=== PATIENT | male | born 1960 | race Two or more races ===

== ENCOUNTER 2017-04-17 14:21 | Emergency (ER) | payer MEDICAID ==
[~2017-04-17] VITALS: Ht 175.3 cm; Wt 81.6 kg
[~2017-04-17 14:21] MED LIST: CYCL5TAB PO; GABA300C8 PO; NOR10T PO; TAMS0.4C36 PO; WARF6TAB21 PO
[2017-04-17 14:28] VITALS: BP 140/89
== END 2017-04-17 18:46 | disposition left against medical advice (07) ==
LOC: ER 14:21
DX: M79.605 Pain in left leg (principal); M79.604 Pain in right leg; Z76.0 Encounter for issue of repeat prescription; Z53.21 Procedure and treatment not carried out due to patient leaving prior to being seen by health care provider

== ENCOUNTER 2017-04-23 13:49 | Emergency (ER) | payer MEDICAID ==
[~2017-04-23] VITALS: Ht 175.3 cm; Wt 81.6 kg
[2017-04-23 14:00] VITALS: BP 138/94
== END 2017-04-23 16:05 | disposition home or self-care (01) ==
LOC: ER 13:49
DX: G89.29 Other chronic pain (principal); M54.42 Lumbago with sciatica, left side; F12.10 Cannabis abuse, uncomplicated; F17.210 Nicotine dependence, cigarettes, uncomplicated; Z79.01 Long term (current) use of anticoagulants; Z76.0 Encounter for issue of repeat prescription

== ENCOUNTER 2017-05-03 09:03 | Emergency (ER) | payer MEDICAID ==
[~2017-05-03] VITALS: Ht 177.8 cm; Wt 81.6 kg
[~2017-05-03 09:03] MED LIST changes: +GABA-497 PO; -GABA300C8 PO
[2017-05-03 09:19] VITALS: BP 139/89
== END 2017-05-03 10:14 | disposition home or self-care (01) ==
LOC: ER 09:03
DX: M54.9 Dorsalgia, unspecified (principal); Z76.0 Encounter for issue of repeat prescription; F17.210 Nicotine dependence, cigarettes, uncomplicated; F12.10 Cannabis abuse, uncomplicated; Z79.899 Other long term (current) drug therapy

== ENCOUNTER 2017-08-26 15:19 | Emergency (ER) | payer MEDICAID ==
[~2017-08-26] VITALS: Ht 177.8 cm; Wt 81.6 kg
[~2017-08-26 15:19] MED LIST changes: +FAM20T PO; -NOR10T PO; -TAMS0.4C36 PO; -WARF6TAB21 PO
[2017-08-26 16:12] VITALS: BP 133/60
== END 2017-08-26 16:54 | disposition home or self-care (01) ==
LOC: ER 15:19
DX: G62.9 Polyneuropathy, unspecified (principal); Z79.899 Other long term (current) drug therapy; Z76.0 Encounter for issue of repeat prescription; F17.210 Nicotine dependence, cigarettes, uncomplicated

== ENCOUNTER 2017-11-24 03:51 | Inpatient (IN) | payer MEDICAID ==
[~2017-11-24] VITALS: Ht 175.3 cm; Wt 85.6 kg
[~2017-11-24 03:51] MED LIST changes: -CYCL5TAB PO; +CYCL7.5T15 PO; -FAM20T PO; -GABA-497 PO
[2017-11-24 06:32] LABS: Eosinophils # (auto) 0.3 uL; Hemoglobin 12.3 g/dL (13.5-17.5); Mean Corpuscular Hemoglobin 21.8 pg (28.0-32.0)
[2017-11-24 06:36] LABS: Basophils # (auto) 0.1 uL; Hematocrit 39.7 % (41.0-53.0); Lymphocytes # (auto) 0.9 uL; Lymphocytes % (auto) 9.4 % (10.0-50.0); Mean Corpuscular Hgb Conc. 30.9 g/dL (32.0-36.0); Mean Corpuscular Volume 70.7 fL (80.0-100.0); Monocytes % (auto) 10.3 % (0.0-12.0); Neutrophils # (auto) 7.3 uL; Neutrophils % (auto) 76.3 % (37.0-80.0); Platelet Count (auto) 510 10^3/uL (140-450); Red Blood Cells 5.61 10^6/uL (4.5-5.90); White Blood Cell 9.6 10^3/uL (4.4-10.8)
[2017-11-24 06:54] LABS: Red Cell Distribution Width 28.6 % (11.8-14.3)
[2017-11-24 06:59] LABS: Alanine Aminotransferase 20 U/L (16-61); Albumin 3.8 g/dL (3.4-5.0); Alkaline Phosphatase 127 U/L (45-117); Anion Gap 10 (5-15); Aspartate Aminotransferase 15 U/L (15-37); Bilirubin, Total 0.3 mg/dL (0.2-1.0); Blood Urea Nitrogen 18 mg/dL (7-18); Calcium 8.4 mg/dL (8.5-10.1); Carbon Dioxide 21 mmol/L (21-32); Chloride 108 mmol/L (98-107); GFR African American 144 mL/min; GFR Non-African American 119 mL/min; Glucose 98 mg/dL (74-106); Magnesium 2.6 mg/dL (1.6-2.6); Potassium 3.9 mmol/L (3.5-5.1); Sodium 139 mmol/L (136-145)
[2017-11-24] MEDS ORDERED: ASPirin-EC 81 mg tab PO ONE (13:15)
[2017-11-24] MEDS ORDERED: ACETAMINOPHEN 500 MG TAB PO PRN (13:30)
[2017-11-24] MEDS ORDERED: TEMAZEPAM 15 MG CAP PO PRN (13:30)
[2017-11-24] MEDS ORDERED: PROMETHAZINE HCL 25 MG/ML 1ML IV PRN (13:30)
[2017-11-24] MEDS ORDERED: NITROGLYCERIN 0.4 MG SL TAB SL PRN (13:30)
[2017-11-24] MEDS ORDERED: LORazepam 0.5 MG TAB PO PRN (13:30)
[2017-11-24] MEDS ORDERED: MORPHINE SULFATE 10 MG/ML INJ 1ML SDV IV PRN ×2 (13:45)
[2017-11-24] MEDS ORDERED: NITROGLYCERIN 0.2MG/HR TOPICAL PATCH TD ONE (13:45)
[2017-11-24] MEDS ORDERED: PANTOPRAZOLE 40 MG TAB PO ONE (13:45)
[2017-11-24] MEDS ORDERED: METOPROLOL TARTRATE 25 MG TAB PO ONE (13:45)
[2017-11-24] MEDS: SODIUM CHLORIDE 0.9% 1,000 ML IV SCH (14:03)
[2017-11-24 14:40] LABS: INR 0.97 (0.9-1.15); Partial Thromboplastin Time 28.2 sec (22.64-33.71); Prothrombin Time 10.6 sec (9.37-12.3)
[2017-11-24 14:51] LABS: CRP High Sensitivity 0.49 mg/dL (< 0.3)
[2017-11-24] MEDS: METOPROLOL TARTRATE 25 MG TAB PO SCH (22:00)
[2017-11-24] MEDS: ATORVASTATIN 20 MG TAB PO SCH (22:00)
[2017-11-24 23:30] VITALS: BP 115/72
[2017-11-25] MEDS: SODIUM CHLORIDE 0.9% 1,000 ML IV SCH ×2 (02:47→16:04)
[2017-11-25 05:00] VITALS: BP 124/67
[2017-11-25] MEDS ORDERED: OXYB15TA12 PO (05:33)
[2017-11-25] MEDS ORDERED: GABA-339 PO (05:33)
[2017-11-25] MEDS ORDERED: FER325T PO (05:33)
[2017-11-25] MEDS ORDERED: PANT40TA2 PO (05:33)
[2017-11-25 08:00] VITALS: BP 115/66
[2017-11-25 09:00] VITALS: BP 115/66
[2017-11-25] MEDS: METOPROLOL TARTRATE 25 MG TAB PO SCH ×2 (09:38→21:40)
[2017-11-25] MEDS: PANTOPRAZOLE 40 MG TAB PO SCH (09:38)
[2017-11-25] MEDS: NITROGLYCERIN 0.2MG/HR TOPICAL PATCH TD SCH (10:00)
[2017-11-25 10:38] LABS: Albumin 3.2 g/dL (3.4-5.0); BUN/Creatinine Ratio 18.2; Bilirubin, Total 0.3 mg/dL (0.2-1.0); Calcium 8.1 mg/dL (8.5-10.1); Potassium 3.8 mmol/L (3.5-5.1); Total Protein 6.7 g/dL (6.4-8.2)
[2017-11-25 11:14] LABS: Basophils # (auto) 0.1 uL; Basophils % (auto) 0.9 % (0.0-2.0); Eosinophils # (auto) 0.3 uL; Eosinophils % (auto) 4.6 % (0.0-7.0); Hematocrit 34.1 % (41.0-53.0); Hemoglobin 10.4 g/dL (13.5-17.5); Lymphocytes # (auto) 0.6 uL; Lymphocytes % (auto) 9.7 % (10.0-50.0); Mean Corpuscular Hemoglobin 21.7 pg (28.0-32.0); Mean Corpuscular Hgb Conc. 30.5 g/dL (32.0-36.0); Mean Corpuscular Volume 71.1 fL (80.0-100.0); Monocytes # (auto) 0.4 uL; Monocytes % (auto) 6.2 % (0.0-12.0); Neutrophils # (auto) 4.7 uL; Neutrophils % (auto) 78.6 % (37.0-80.0); Platelet Count (auto) 439 10^3/uL (140-450); Red Blood Cells 4.79 10^6/uL (4.5-5.90); Red Cell Distribution Width 28.1 % (11.8-14.3); White Blood Cell 5.9 10^3/uL (4.4-10.8)
[2017-11-25 13:00] VITALS: BP 126/67
[2017-11-25 17:00] VITALS: BP 119/73
[2017-11-25] MEDS: ATORVASTATIN 20 MG TAB PO SCH (21:39)
[2017-11-25 22:00] VITALS: BP 131/75
[2017-11-26] MEDS: SODIUM CHLORIDE 0.9% 1,000 ML IV SCH ×2 (04:50→17:43)
[2017-11-26 05:00] VITALS: BP 113/80
[2017-11-26 08:00] VITALS: BP 131/84
[2017-11-26 08:54] VITALS: BP 131/84
[2017-11-26] MEDS: NITROGLYCERIN 0.2MG/HR TOPICAL PATCH TD SCH (09:25)
[2017-11-26] MEDS: METOPROLOL TARTRATE 25 MG TAB PO SCH ×2 (09:25→22:00)
[2017-11-26] MEDS: PANTOPRAZOLE 40 MG TAB PO SCH (09:25)
[2017-11-26] MEDS: HYDROcodone-ACET 5/325MG TAB PO PRN ×2 (09:29→16:11)
[2017-11-26 12:00] VITALS: BP 125/66
[2017-11-26] MEDS ORDERED: BISACODYL 5 MG EC TAB PO ONE (16:15)
[2017-11-26 17:00] VITALS: BP 132/85
[2017-11-26 22:00] VITALS: BP 118/79
[2017-11-26] MEDS: ATORVASTATIN 20 MG TAB PO SCH (22:00)
[2017-11-27 05:49] VITALS: BP 121/87
[2017-11-27 08:00] VITALS: BP 115/71
[2017-11-27] MEDS: SODIUM CHLORIDE 0.9% 1,000 ML IV SCH ×2 (08:07→20:46)
[2017-11-27] MEDS: METOPROLOL TARTRATE 25 MG TAB PO SCH ×2 (09:25→20:45)
[2017-11-27] MEDS: PANTOPRAZOLE 40 MG TAB PO SCH (09:25)
[2017-11-27] MEDS: NITROGLYCERIN 0.2MG/HR TOPICAL PATCH TD SCH (09:25)
[2017-11-27 12:00] VITALS: BP 109/53
[2017-11-27 17:00] VITALS: BP 127/82
[2017-11-27] MEDS: HYDROcodone-ACET 5/325MG TAB PO PRN (17:10)
[2017-11-27] MEDS: ATORVASTATIN 20 MG TAB PO SCH (20:45)
[2017-11-27 22:00] VITALS: BP 140/80
[2017-11-28] MEDS: HYDROcodone-ACET 5/325MG TAB PO PRN (05:32)
[2017-11-28 06:11] VITALS: BP 121/81
[2017-11-28 09:00] VITALS: BP 116/78
[2017-11-28] MEDS: NITROGLYCERIN 0.2MG/HR TOPICAL PATCH TD SCH (10:00)
[2017-11-28] MEDS: METOPROLOL TARTRATE 25 MG TAB PO SCH (10:00)
[2017-11-28] MEDS: PANTOPRAZOLE 40 MG TAB PO SCH (10:01)
[2017-11-28] MEDS: SODIUM CHLORIDE 0.9% 1,000 ML IV SCH (10:47)
[2017-11-28 13:00] VITALS: BP 110/76
[2017-11-28 17:00] VITALS: BP 98/60
[2017-11-28 17:21] VITALS: BP 130/83
[2017-11-29 07:07] LABS: Alcohol, Urine < 3.0 mg/dL (0-5); Amphetamine Screen, Urine NEGATIVE (NEGATIVE); Barbiturate Scree,Urine NEGATIVE (NEGATIVE); Benzodiazephine Screen, Urine NEGATIVE (NEGATIVE); Cannabinoid Screen, Urine NEGATIVE (NEGATIVE); Cocaine Screen, Urine NEGATIVE (NEGATIVE); Opiate Scree,Urine NEGATIVE (NEGATIVE); Phencyclidine Screen, Urine NEGATIVE (NEGATIVE)
== END 2017-11-28 18:15 | disposition home or self-care (01) | DRG 203 ==
LOC: EDBD 03:51 → ER 03:58 → TELE 03:59 → TELE-EAST 23:02
PROVIDERS: ADMIT Internal Medicine; ATTEND Internal Medicine Pulmonary Disease
DX: M94.0 Chondrocostal junction syndrome [Tietze] (principal); G82.20 Paraplegia, unspecified; E44.1 Mild protein-calorie malnutrition; D47.3 Essential (hemorrhagic) thrombocythemia; F17.210 Nicotine dependence, cigarettes, uncomplicated; D50.9 Iron deficiency anemia, unspecified; M54.9 Dorsalgia, unspecified; G89.29 Other chronic pain; Z87.11 Personal history of peptic ulcer disease; Z82.49 Family history of ischemic heart disease and other diseases of the circulatory system; Z59.0 Homelessness
CPT/HCPCS: 36415; 71010; 80053; 80061; 80307; 82550; 83735; 84484; 85025; 85379; 85610; 85652; 85730; 86141; 87081; 93005; 97163

== ENCOUNTER 2018-08-23 12:30 | Emergency (ER) | payer MEDICAID ==
[~2018-08-23] VITALS: Ht 157.5 cm; Wt 79.4 kg
[~2018-08-23 12:30] MED LIST changes: +CLIN1CAP4 PO; -CYCL7.5T15 PO; +DICL1GEL26; +FER325T PO; +GABA-339 PO; +OXYB15TA12 PO; +PANT40TA2 PO; +SACC250C PO
[2018-08-23 12:37] VITALS: BP 141/94
[2018-08-23] MEDS ORDERED: hydrOXYzine HCL 25 MG/ML VL IM ONE (14:15)
[2018-08-23] MEDS ORDERED: NALBUPHINE HCL 10 MG/1ml INJECTION IM ONE (14:15)
== END 2018-08-23 14:49 | disposition home or self-care (01) ==
LOC: EDBD 12:30 → ER 12:30
DX: G89.29 Other chronic pain (principal); M54.5 Low back pain; F17.210 Nicotine dependence, cigarettes, uncomplicated; F12.10 Cannabis abuse, uncomplicated; Z59.0 Homelessness
CPT/HCPCS: 96372; 99284; J2300; J3410

== ENCOUNTER 2019-07-02 21:55 | Emergency (ER) | payer MEDICAID ==
[~2019-07-02] VITALS: Ht 177.8 cm; Wt 65.8 kg
[~2019-07-02 21:55] MED LIST changes: -CLIN1CAP4 PO; +CLIN300C8 PO
[2019-07-02 22:18] VITALS: BP 126/87
[2019-07-02 22:46] LABS: Basophils # (auto) 0.1 uL; Eosinophils # (auto) 0.1 uL; Eosinophils % (auto) 1.7 % (0.0-7.0); Lymphocytes # (auto) 1.3 uL; Monocytes # (auto) 0.7 uL; Neutrophils # (auto) 6.4 uL; White Blood Cell 8.6 10^3/uL (4.4-10.8)
[2019-07-02 22:49] LABS: Basophils % (auto) 0.8 % (0.0-2.0); Hematocrit 52.5 % (41.0-53.0); Hemoglobin 17.9 g/dL (13.5-17.5); Lymphocytes % (auto) 15.1 % (10.0-50.0); Mean Corpuscular Hemoglobin 29.7 pg (28.0-32.0); Mean Corpuscular Hgb Conc. 34.1 g/dL (32.0-36.0); Monocytes % (auto) 7.7 % (0.0-12.0); Neutrophils % (auto) 74.7 % (37.0-80.0); Nucleated Red Blood Cells % 0.3 %; Platelet Count (auto) 371 10^3/uL (140-450); Red Blood Cells 6.03 10^6/uL (4.5-5.90); Red Cell Distribution Width 13.9 % (11.8-14.3)
[2019-07-02 23:03] LABS: Albumin 3.9 g/dL (3.4-5.0); Anion Gap 9 (5-15); Blood Urea Nitrogen 17 mg/dL (7-18); Calcium 8.9 mg/dL (8.5-10.1); Carbon Dioxide 23 mmol/L (21-32); Chloride 112 mmol/L (98-107); Glucose 96 mg/dL (74-106); Potassium 4.1 mmol/L (3.5-5.1); Sodium 144 mmol/L (136-145)
[2019-07-02 23:10] LABS: Alanine Aminotransferase 22 U/L (16-61); Alkaline Phosphatase 140 U/L (45-117); Aspartate Aminotransferase 12 U/L (15-37); BUN/Creatinine Ratio 16.8; Bilirubin, Total 0.4 mg/dL (0.2-1.0); GFR African American 97 mL/min; GFR Non-African American 80 mL/min
== END 2019-07-03 02:08 | disposition left against medical advice (07) ==
LOC: ER 21:55
DX: R30.9 Painful micturition, unspecified (principal); Z53.21 Procedure and treatment not carried out due to patient leaving prior to being seen by health care provider
CPT/HCPCS: 36415; 80053; 84484; 85025

== ENCOUNTER 2019-09-07 14:47 | Emergency (ER) | payer MEDICAID ==
[~2019-09-07] VITALS: Ht 175.3 cm; Wt 77.1 kg
[2019-09-07 15:20] VITALS: BP 137/89
[2019-09-07 17:44] LABS: Urine Bacteria NONE SEEN /hpf (None Seen); Urine Blood Negative /uL (Negative); Urine Mucus FEW (None Seen); Urine Specific Gravity 1.024 (1.001-1.035); Urine WBC <1 /hpf (0 - 3)
== END 2019-09-07 18:18 | disposition home or self-care (01) ==
LOC: ER 14:51
DX: R30.0 Dysuria (principal); Z79.899 Other long term (current) drug therapy
CPT/HCPCS: 51701; 81001

== ENCOUNTER 2020-07-03 08:32 | Emergency (ER) | payer MEDICAID ==
[~2020-07-03] VITALS: Ht 177.8 cm; Wt 77.1 kg
[2020-07-03 11:30] LABS: Basophils # (auto) 0 10 ^3/uL (0-0.2); Basophils % (auto) 0.4 % (0.0-2.0); Eosinophils # (auto) 0.1 10 ^3/uL (0-0.8); Eosinophils % (auto) 0.9 % (0.0-7.0); Hematocrit 49.7 % (41.0-53.0); Hemoglobin 16.6 g/dL (13.5-17.5); Lymphocytes # (auto) 0.8 10 ^3/uL (0.4-5.4); Lymphocytes % (auto) 8.3 % (10.0-50.0); Mean Corpuscular Hemoglobin 28.7 pg (28.0-32.0); Mean Corpuscular Hgb Conc. 33.4 g/dL (32.0-36.0); Monocytes # (auto) 0.6 10 ^3/uL (0-1.3); Monocytes % (auto) 6.3 % (0.0-12.0); Neutrophils # (auto) 7.7 10 ^3/uL (1.6-8.6); Neutrophils % (auto) 84.1 % (37.0-80.0); Nucleated Red Blood Cells % 0.1 %; Platelet Count (auto) 366 10^3/uL (140-450); Red Blood Cells 5.78 10^6/uL (4.5-5.90); Red Cell Distribution Width 13.8 % (11.8-14.3); White Blood Cell 9.1 10^3/uL (4.4-10.8)
[2020-07-03] MEDS ORDERED: SODIUM CHLORIDE 0.9% 1,000 ML IV ONE (11:32)
[2020-07-03 11:42] LABS: INR 0.99 (0.9-1.15)
[2020-07-03 11:45] LABS: Albumin 3.9 g/dL (3.4-5.0); Calcium 9.2 mg/dL (8.5-10.1); Potassium 4.3 mmol/L (3.5-5.1)
[2020-07-03 11:48] LABS: BUN/Creatinine Ratio 14.2; Bilirubin, Total 0.5 mg/dL (0.2-1.0); Total Protein 8.1 g/dL (6.4-8.2)
[2020-07-03 12:23] LABS: Urine Bacteria NONE SEEN /hpf (None Seen); Urine Blood Negative /uL (Negative); Urine Specific Gravity 1.015 (1.001-1.035); Urine WBC <1 /hpf (0 - 3)
[2020-07-03 12:30] LABS: Amphetamine Screen, Urine NEGATIVE (NEGATIVE); Barbiturate Scree,Urine NEGATIVE (NEGATIVE); Benzodiazephine Screen, Urine NEGATIVE (NEGATIVE); Cannabinoid Screen, Urine POSITIVE (NEGATIVE); Cocaine Screen, Urine NEGATIVE (NEGATIVE); Opiate Scree,Urine NEGATIVE (NEGATIVE); Phencyclidine Screen, Urine NEGATIVE (NEGATIVE)
[2020-07-03 12:33] LABS: Alcohol, Urine < 3.0 mg/dL (0-10)
[2020-07-03 14:02] VITALS: BP 116/73
== END 2020-07-03 14:41 | disposition home or self-care (01) ==
LOC: EDBD 08:32 → ER 08:32 → EDUNIT# 08:32 → ER 14:41
DX: M48.061 Spinal stenosis, lumbar region without neurogenic claudication (principal); M47.896 Other spondylosis, lumbar region; R32 Unspecified urinary incontinence; G82.20 Paraplegia, unspecified; F17.210 Nicotine dependence, cigarettes, uncomplicated; Z59.0 Homelessness; Z99.3 Dependence on wheelchair
CPT/HCPCS: 36415; 71045; 72131; 80053; 80307; 81001; 83735; 84484; 85025; 85610; 96360; 96361; 99285; J7030

== ENCOUNTER 2020-09-08 13:42 | Emergency (ER) | payer MEDICAID ==
[~2020-09-08] VITALS: Ht 177.8 cm; Wt 77.1 kg
[2020-09-08 13:58] VITALS: BP 140/71
[2020-09-08 14:47] LABS: Urine Bacteria NONE SEEN /hpf (None Seen); Urine Blood Negative /uL (Negative); Urine Mucus FEW (None Seen); Urine WBC 1 /hpf (0 - 3)
== END 2020-09-08 15:20 | disposition home or self-care (01) ==
LOC: ER 13:42
DX: N39.0 Urinary tract infection, site not specified (principal)
CPT/HCPCS: 81001